=== PATIENT | female | born 1980 | race Two or more races ===

== ENCOUNTER 2024-11-25 12:06 | Outpatient (RCR) | payer MEDICAID, SELFPAY ==
--- NOTE | 2024-11-25 12:30 | XR_ITS ---
Examination: JERALD, hepatobiliary radioisotope scan Gallbladder ejection fraction study. Date and time of exam: November 25, 2024 1204 hours INDICATIONS: Right upper abdominal pain beginning 2 years ago with heartburn and acid reflux Technique: 5.7 mCi of 99M Hepatolite administered. Serial imaging then obtained from immediate through 60 minutes. 1.6 mcg selective catheter Kinevac administered for gallbladder ejection fraction study. Findings: Radioisotope activity within the liver is reasonably homogenous. Gallbladder, common bile duct small bowel activity noted Impression: Gallbladder activity, abnormal gallbladder ejection fraction 3%
== END 2024-11-30 23:59 | disposition home or self-care (01) ==
LOC: SNUC 12:06
PROVIDERS: Referring Provider Specialist; Visit Provider Specialist
DX: R93.89 Abnormal findings on diagnostic imaging of other specified body structures (principal)
CPT/HCPCS: 78227; A9537; J2805